=== PATIENT | female | born 1965 | race African-American/Black ===

== ENCOUNTER → 2020-05-15 | Outpatient (CLI) | payer OTHER ==
[~2020-05-15] MED LIST: ACET-868 PO; IBUP-1955 PO; TRAM50TA2 PO
== END | disposition home or self-care (01) ==
LOC: LAB 07:15
PROVIDERS: ATTEND Specialist
DX: Z01.812 Encounter for preprocedural laboratory examination (principal); Z20.828 Contact with and (suspected) exposure to other viral communicable diseases
CPT/HCPCS: 87426; C9803 ×2; U0003

== ENCOUNTER 2020-05-20 07:45 | Inpatient (IN) | payer OTHER ==
[~2020-05-20] VITALS: Ht 175.3 cm; Wt 65.8 kg
--- NOTE | 2020-05-20 08:00 | NUR ---
ms rn received a day surgery patient 54 female awake,alert,oriented x4,not in any form of distress, will have a left knee sx by doctor azalea.all needs attended.
[2020-05-20] MEDS ORDERED: ANCEF 1 GM/50 ML D5W IV ONE ×2 (09:00)
--- NOTE | 2020-05-20 09:20 | NUR ---
ms rn all needs attended and prepared for sx, went down fos sx.
[2020-05-20] MEDS ORDERED: TRANEXAMIC ACID 3,000 MG in SODIUM CHLORIDE IRRIG SOLUTION 70 ML IR ONE (09:30)
[2020-05-20] MEDS ORDERED: BACITRACIN 50000 UNITS/VIAL ONE (09:53)
[2020-05-20 10:00] VITALS: BP 152/89
[2020-05-20] MEDS ORDERED: MIDAZOLAM HCL 2 MG/2ML VIAL ONE (10:05)
[2020-05-20] MEDS ORDERED: HYDROMORPHONE INJ 2 MG/ML DISP.SYRIN ONE ×2 (10:05→11:46)
[2020-05-20] MEDS ORDERED: ONDANSETRON HCL/PF 4 MG/2 ML VIAL ONE (12:25)
[2020-05-20] MEDS ORDERED: BISACODYL SUPP (10 MG) 10 MG/SUPP.RECT SUPP.RECT RC PRN (12:30)
[2020-05-20] MEDS ORDERED: SENNOSIDES 8.6 MG TABLET PO PRN (12:30)
[2020-05-20] MEDS ORDERED: IV LR 1000 ML 1,000 ML IV PRN (12:30)
[2020-05-20] MEDS ORDERED: ONDANSETRON HCL/PF 4 MG/2 ML VIAL IVP PRN (12:30)
[2020-05-20] MEDS ORDERED: HYDROMORPHONE 1 MG/1 ML DISP.SYRIN IV PRN (12:30)
[2020-05-20] MEDS ORDERED: HYDROCODONE/APAP 5/325MG TABLET PO PRN ×2 (12:30)
[2020-05-20] MEDS ORDERED: ZOLPIDEM TARTRATE 5 MG TABLET PO PRN (12:30)
[2020-05-20] MEDS ORDERED: DOCUSATE SODIUM 250 MG CAPSULE PO PRN (12:30)
[2020-05-20] MEDS ORDERED: ACETAMINOPHEN 325 MG TABLET PO PRN (12:30)
--- NOTE | 2020-05-20 13:00 | NUR ---
ms rn patient came back from [place], s/p left knee arthroplasty.awake,alert,all needs attended.oriented x4,not in any pain at this time, sx site w/ dressing intact clean and dry.
[2020-05-20] MEDS ORDERED: TRAM50TA2 PO (13:45)
[2020-05-20] MEDS ORDERED: ACET-868 PO (13:45)
[2020-05-20] MEDS ORDERED: IBUP-1955 PO (13:45)
[2020-05-20] MEDS ORDERED: diphenhydrAMINE HCL 25 MG CAPSULE PO PRN (15:00)
[2020-05-20] MEDS ORDERED: MAGNESIUM HYDROXIDE 30 ML UDC PO PRN (15:00)
[2020-05-20] MEDS ORDERED: MENTHOL/CETYLPYRD (CEPACOL) 1 LOZ LOZENGE PO PRN (15:00)
[2020-05-20] MEDS: LORAZEPAM 1 MG TABLET PO SCH ×2 (15:00→23:16)
[2020-05-20] MEDS ORDERED: MAG HYDROX/AL HYDROX/SIMETH 30 ML UDC PO PRN (15:00)
[2020-05-20] MEDS ORDERED: CLONIDINE HCL 0.1 MG TABLET PO PRN (15:00)
[2020-05-20] MEDS ORDERED: AMLODIPINE BESYLATE 5 MG TABLET PO ONE (15:04)
[2020-05-20 16:00] VITALS: BP 133/91
[2020-05-20] MEDS: AMLODIPINE BESYLATE 5 MG TABLET PO SCH (18:22)
[2020-05-20] MEDS: DOCUSATE SODIUM 100 MG CAPSULE PO SCH (18:22)
[2020-05-20 20:00] VITALS: BP 130/90
[2020-05-20] MEDS: oxyCODONE IR immediate release 5 MG PO PRN (20:36)
[2020-05-20] MEDS: FAMOTIDINE (20 MG) 20 MG TABLET PO SCH (21:30)
[2020-05-20 22:01] VITALS: BP 130/90
--- NOTE | 2020-05-20 22:18 | NUR ---
MS/RN OPENING NOTE Patient awake in bed A/Ox4, ambulatory with assist. Breath sounds even, clear, unlabored. No acute distress or SOB. Skin warm, pink, dry appropriate for ethnicity. Dressing to left knee, dry and intact. IV site left hand 20g, patent and intact. Patient is continent, void via BRP. Bed in low position, wheels locked, side rails up x2, call light within reach.
--- NOTE | 2020-05-20 23:30 | NUR ---
MS/RN NOTE IV site fell out, intact. Patient refused new IV access at this time.
[2020-05-21] MEDS: oxyCODONE IR immediate release 5 MG PO PRN (01:33)
--- NOTE | 2020-05-21 01:39 | NUR ---
MS/RN NOTE Patient c/o pain in left knee, aching and throbbing. Administered PRN oxy IR as ordered. VSS. Will continue to monitor.
[2020-05-21] MEDS: LORAZEPAM 1 MG TABLET PO SCH ×3 (06:32→22:42)
--- NOTE | 2020-05-21 07:18 | NUR ---
MS/RN CLOSING NOTE Patient awake in bed A/Ox4, ambulatory with assist. Breath sounds even, clear, unlabored. No acute distress or SOB. Dressing to left knee, dry and intact. No IV site, patient refused. No BM. Patient is continent, void via BRP. Bed in low position, wheels locked, side rails up x2, call light within reach.
[2020-05-21 07:34] LABS: HEMOGLOBIN 9.9 g/dL (11.5-14.8)
--- NOTE | 2020-05-21 07:40 | NUR ---
ms rn received on bed, awake,alert,oriented x4,not in any form of distress, respirations even and unlabored,no sob noted,denies pain at this time,s/p left knee arthroplasty,will monitor patient's condition.
[2020-05-21 08:00] VITALS: BP 126/87
[2020-05-21] MEDS: ASPIRIN 325 MG TABLET PO SCH ×3 (08:32→17:00)
[2020-05-21] MEDS: DOCUSATE SODIUM 100 MG CAPSULE PO SCH ×2 (08:32→18:25)
[2020-05-21] MEDS: AMLODIPINE BESYLATE 5 MG TABLET PO SCH (08:33)
[2020-05-21] MEDS: FAMOTIDINE (20 MG) 20 MG TABLET PO SCH ×2 (08:33→21:34)
[2020-05-21] MEDS ORDERED: oxyCODONE IR immediate release 5 MG PO ONE ×2 (08:36→08:41)
[2020-05-21] MEDS ORDERED: oxyCODONE IR immediate release 5 MG PO PRN (09:00)
--- NOTE | 2020-05-21 09:40 | NUR ---
ms sutton breakfast served,due meds given,tolerated well.
--- NOTE | 2020-05-21 11:00 | NUR ---
ms rn get up w/ pt, walked w/ walker,tolerated well.
[2020-05-21] MEDS: HYDROMORPHONE 1 MG/1 ML DISP.SYRIN IM/IV/SC PRN ×3 (11:07→21:52)
--- NOTE | 2020-05-21 14:30 | NUR ---
ms rn patient on cpm machine,tolerated well.
[2020-05-21 16:00] VITALS: BP 138/86
--- NOTE | 2020-05-21 18:48 | NUR ---
ms rn on bed, no distress noted,all needs attended.
--- NOTE | 2020-05-21 19:31 | NUR ---
MS RN PT IN BED WATCHING TV A/O X 4 S/P L KNEE ARTHROPLASTY L KNEE DRESSING INTACT NO S/S OF BLEEDING NO S/S OF DISTRESS, STABLE. SAFETY MEASURES IN PLACE WILL CONT TO MONITOR
[2020-05-21 20:00] VITALS: BP 126/83
[2020-05-21 20:45] VITALS: BP 126/83
[2020-05-22] MEDS: HYDROMORPHONE 1 MG/1 ML DISP.SYRIN IM/IV/SC PRN ×5 (01:34→16:52)
--- NOTE | 2020-05-22 06:29 | NUR ---
MONITORED PAIN & PT ACCORDINGLY, VS STABLE, MAINTAINS WBAT S/P L TKA KNEE IMMOBILIZER AT ALL TIMES. ENCOURAGE PT TO USE INCENTIVE SPIROMETER WHILE AWAKE. ALL NEEDS ATTENDED AND ANTICIPATED, PT KEPT CLEAN, DRY AND COMFORTABLE. STABLE. SAFETY MEASURES AT ALL TIMES. WILL ENDORSE POC.
--- NOTE | 2020-05-22 07:30 | NUR ---
MS/RN OPENING NOTE Received patient in bed, A&O x 4. Denies any pain and discomfort at this time. Breathing even and non-labored on RA, no SOB noted. No cardiac distress noted. IV access noted on L hand #24 g, patent and intact, and flushing well. L knee dressing intact. Sensation from all peripheral extremities intact. Bed locked to its lowest position, side rails x 2 up, call light in reach. Will continue with current medical management.
[2020-05-22 08:00] VITALS: BP 125/80
[2020-05-22] MEDS: DOCUSATE SODIUM 100 MG CAPSULE PO SCH ×2 (08:22→16:52)
[2020-05-22] MEDS: ASPIRIN 325 MG TABLET PO SCH ×2 (08:22→16:52)
[2020-05-22] MEDS: FAMOTIDINE (20 MG) 20 MG TABLET PO SCH (08:22)
[2020-05-22] MEDS: LORAZEPAM 1 MG TABLET PO SCH ×3 (08:22→15:29)
[2020-05-22 08:23] VITALS: BP 115/78
[2020-05-22] MEDS: AMLODIPINE BESYLATE 5 MG TABLET PO SCH (08:23)
--- NOTE | 2020-05-22 15:15 | NUR ---
MS/RN NOTE Non-administered Ativan 0.5 mg PO, pill fell on the floor, wasted with Lisa DELEON. Will get a new pill.
--- NOTE | 2020-05-22 15:20 | NUR ---
MS/PULVERIZER NOTE Patient picked up by , Juan Francisco, @ 1720. VSS, afebrile, no SOB noted. All needs are met and attended to. Denies any pain and discomfort at this time. Breathing even and non-labored on RA. No respiratory or cardiac distress noted. IV access on LFA #22 removed with catheter intact. Sensation from all peripheral extremities intact. Left knee immobilizer in place, dressing clean and intact. Educated patient regarding discharge instructions, answered all their questions to their satisfaction. Patient verbalized understanding. Patient left facility safely with all belongings and hospital documents.
--- NOTE | 2020-05-22 16:00 | NUR ---
MS/RN NOTE Patient insists on having PT home health, notified SAMEER Gao. Order carried out, will be arranged by case management.
== END 2020-05-22 17:10 | disposition home health service (06) | DRG 470 ==
LOC: DS 07:45 → MED 07:46
PROVIDERS: ADMIT Nurse Practitioner Acute Care; ATTEND Nurse Practitioner Acute Care
PROC: 0SRD0J9 Replacement of Left Knee Joint with Synthetic Substitute, Cemented, Open Approach (ICD-10-PCS; principal; 2020-05-20)
DX: M17.12 Unilateral primary osteoarthritis, left knee (principal); E66.9 Obesity, unspecified; I10 Essential (primary) hypertension; Z68.21 Body mass index [BMI] 21.0-21.9, adult; F10.20 Alcohol dependence, uncomplicated
CPT/HCPCS: 36415; 85027-TC; 86850-TC; 87081-TC; 88305-TC; 88311-TC; 97110-TC; 97112-TC; 97116-TC; 97530-TC; A4217; C1713; C1776; G0378; J0690; J1100; J1170; J1885; J2250; J2405; J2704; J3490; J7060; L1830

== ENCOUNTER 2020-06-24 10:00 | Outpatient (CLI) | payer OTHER | END 2020-06-24 23:59 | disposition home or self-care (01) | LOC: LAB 10:00 | PROVIDERS: ATTEND Specialist | DX: Z01.812 Encounter for preprocedural laboratory examination (principal); Z20.828 Contact with and (suspected) exposure to other viral communicable diseases | CPT/HCPCS: 87426; C9803 ×2; U0003 ==

== ENCOUNTER 2020-07-01 05:07 | Inpatient (IN) | payer OTHER ==
[~2020-07-01] VITALS: Ht 175.3 cm; Wt 92.1 kg
--- NOTE | 2020-07-01 05:20 | NUR ---
MS/RN OPENING NOTES: PT ARRIVED TO THE UNIT AT 0520 IN STABLE CONDITION. A/OX4, VERBALLY RESPONSIVE AND ABLE TO MAKE NEEDS KNOWN. AMBULATORY WITH STEADY GAIT. NO SOB NOTED. NO S/S OF DISTRESS. ON ROOM AIR, BREATHING EVEN AND UNLABORED. NO C/O PAIN AT THIS TIME. BELONGINGS LIST CHECKED. NO MEDICAL HISTORIES. PT HAD HYSTERECTOMY AND LEFT KNEE TOTAL ARTHROPLASTY. SCAR NOTED. SKIN INTACT. PHOTO TAKEN AND DOCUMENTED IN CHART. PT ORIENTED TO UNIT AND STAFF. ALL CONSENTS SIGNED AND PLACED IN THE CHART. PT. NPO SINCE MIDNIGHT. IV ON THE LEFT AC #20G INTACT AND PATENT, SL. MRSA SWAB DONE. ALL NURSING NEEDS ATTENDED FOR NOW. WILL CONTINUE TO MONITOR.
--- NOTE | 2020-07-01 05:30 | NUR ---
MS/RN NOTES: PT IS VEGETARIAN, NO EGGS, NO MILK.
[2020-07-01 06:01] VITALS: BP 139/87
[2020-07-01] MEDS ORDERED: ANESTHESIA TRAY IN PYXIS 1 EA TRAY MC ONE (06:21)
[2020-07-01] MEDS ORDERED: BUPIVACAINE 0.5 % PF 150 MG/30 ML VIAL ONE (06:39)
[2020-07-01] MEDS ORDERED: SCOPOLAMINE PATCH 1 MG/72HR TD ONE (06:40)
[2020-07-01] MEDS ORDERED: SEVOFLURANE 250 ML BOTTLE IH ONE (06:40)
[2020-07-01] MEDS ORDERED: BUPIVACAINE MPF W/EPI 0.25% 30 ML VIAL ONE (06:41)
--- NOTE | 2020-07-01 06:42 | NUR ---
MS/RN NOTES: PT. PICKED UP BY JAZMINE FROM OR FOR PROCEDURE "RIGHT KNEE TOTAL ARTHROPLASTY" WITH DR. RICHEY. WILL ENDORSE TO DAY SHIFT FOR CHARANJIT.
[2020-07-01] MEDS ORDERED: FENTANYL PF 100MCG/2ML AMPUL ONE ×2 (06:55→09:11)
[2020-07-01] MEDS ORDERED: HYDROMORPHONE 1 MG/1 ML DISP.SYRIN ONE ×2 (09:01→09:07)
[2020-07-01] MEDS ORDERED: SENNOSIDES 8.6 MG TABLET PO PRN (10:00)
[2020-07-01] MEDS ORDERED: DOCUSATE SODIUM 250 MG CAPSULE PO PRN (10:00)
[2020-07-01] MEDS ORDERED: ONDANSETRON HCL/PF 4 MG/2 ML VIAL IVP PRN (10:00)
[2020-07-01] MEDS ORDERED: HYDROCODONE/APAP 5/325MG TABLET PO PRN (10:00)
[2020-07-01] MEDS ORDERED: ACETAMINOPHEN 325 MG TABLET PO PRN (10:00)
[2020-07-01] MEDS ORDERED: BISACODYL SUPP (10 MG) 10 MG/SUPP.RECT SUPP.RECT RC PRN ×2 (10:00→14:30)
[2020-07-01] MEDS: HYDROMORPHONE 1 MG/1 ML DISP.SYRIN IV PRN ×2 (10:53→20:04)
[2020-07-01] MEDS ORDERED: HYDROMORPHONE 1 MG/1 ML DISP.SYRIN IV ONE (14:03)
[2020-07-01] MEDS ORDERED: oxyCODONE IR immediate release 5 MG PO ONE (14:17)
[2020-07-01] MEDS ORDERED: MENTHOL/CETYLPYRD (CEPACOL) 1 LOZ LOZENGE PO PRN (14:30)
[2020-07-01] MEDS ORDERED: HYDROMORPHONE 1 MG/1 ML DISP.SYRIN IV PRN (14:30)
[2020-07-01] MEDS: LORAZEPAM 1 MG TABLET PO SCH ×2 (14:30→22:30)
[2020-07-01] MEDS ORDERED: CLONIDINE HCL 0.1 MG TABLET PO PRN (14:30)
[2020-07-01] MEDS ORDERED: diphenhydrAMINE HCL 25 MG CAPSULE PO PRN (14:30)
[2020-07-01] MEDS ORDERED: oxyCODONE IR immediate release 5 MG PO PRN (14:30)
[2020-07-01] MEDS ORDERED: MAG HYDROX/AL HYDROX/SIMETH 30 ML UDC PO PRN (14:30)
[2020-07-01] MEDS: oxyCODONE IR immediate release 5 MG PO PRN ×2 (14:53→20:32)
[2020-07-01] MEDS: ANCEF 1 GM/50 ML D5W IV SCH ×4 (15:33→22:42)
[2020-07-01] MEDS: IV LR 1000 ML 1,000 ML IV PRN (15:53)
[2020-07-01 16:00] VITALS: BP 147/88
[2020-07-01] MEDS ORDERED: AMLODIPINE BESYLATE 5 MG TABLET PO SCH (17:00)
[2020-07-01] MEDS: DOCUSATE SODIUM 100 MG CAPSULE PO SCH (17:02)
--- NOTE | 2020-07-01 18:07 | NUR ---
RN MS CLOSING NOTES PATIENT RESTING COMFORTABLY IN BED, A/OX4, VERBALLY RESPONSIVE AND ABLE TO MAKE NEEDS KNOWN. PATIENT ON ROOM AIR, BREATHING EVEN AND UNLABORED NO C/O SOB NOTED, NO S/S OF ACUTE RESPIRATORY DISTRESS. PT C/O PAIN LEVEL 6/10 ON PAIN SCALE TO LT KNEE S/P TOTAL LT KNEE ARTHROPLASTY. IV TO LT AC #20G PATENT AND INTACT; INFUSING LR @100 ML/HR. PT USING BEDSIDE COMMODE WITH ASSISTANCE. PT ON VEGAN DIET. PAIN MANAGEMENT UNDER CONTROL. BED IS AT LOWEST POSITION AND LOCKED WITH SIDE RAILS UPX2 AND CALL LIGHT WITH IN REACH. WILL ENDORSE TO ONCOMING SHIFT.
--- NOTE | 2020-07-01 19:30 | NUR ---
MS ADRIENNE OPEN NOTES PT IS SITTING IN BED WATCHIING TV. A/O X4. STABLE ON RA, NO SOB/ ACUTE RESPIRATORY DISTRESS NOTED. IV IN L AC #20G IS PATENT AND INTACT RUNNING LR @ 100MLS/HR. PT IS ABLE TO AMBULATE TO COMMODE. BED IS IN LOWEST LOCKED POSITION WITH SIDE RAILS UP X3, SEMI FOWLERS. CALL LIGHT IS WITHIN REACH. WILL CONTINUE TO MONITOR.
[2020-07-01 20:00] VITALS: BP 137/88
[2020-07-01] MEDS: FAMOTIDINE (20 MG) 20 MG TABLET PO SCH (20:04)
--- NOTE | 2020-07-01 22:00 | NUR ---
MS RN NOTES PT TRANSFERRED FROM ROOM 304-1 TO 307-2 DUE TO HER BEING CONCERNED OF THE LOOSE TILE ON CEILING. PER PT, SHE IS AFRAID THERE IS MOLD AND IS AFRAID OF BEING ALLERGIC/ INHALING ANYTHING TOXIC. WILL CONTINUE TO MONITOR PT.
[2020-07-01] MEDS: ZOLPIDEM TARTRATE 5 MG TABLET PO PRN (22:37)
[2020-07-02] VITALS: BP 151/92
[2020-07-02] MEDS: HYDROMORPHONE 1 MG/1 ML DISP.SYRIN IV PRN ×5 (00:24→18:06)
[2020-07-02] MEDS: IV LR 1000 ML 1,000 ML IV PRN (03:22)
[2020-07-02] MEDS: oxyCODONE IR immediate release 5 MG PO PRN ×3 (04:26→21:18)
[2020-07-02 06:07] LABS: BASOPHILS % (AUTO) 0.2 % (0.0-2.0); EOSINOPHILS % (AUTO) 0.2 % (0.0-6.0); HEMATOCRIT 34 % (33-45); HEMOGLOBIN 10.4 g/dL (11.5-14.8); LYMPHOCYTES # (AUTO) 1.4 /CMM (0.8-4.8); LYMPHOCYTES % (AUTO) 18.3 % (20.0-44.0); MEAN CORPUSCULAR HGB CONC 31 g/dl (31.0-36.0); MEAN CORPUSCULAR VOLUME 74 fL (82-100); MONOCYTES # (AUTO) 0.9 /CMM (0.1-1.30); MONOCYTES % (AUTO) 12.1 % (2.0-12.0); NEUTROPHILS # (AUTO) 5.4 /CMM (1.8-8.9); NEUTROPHILS % (AUTO) 69.2 % (43.0-81.0); PLATELET COUNT (AUTO) 267 /CMM (150-450); WHITE BLOOD COUNT (AUTO) 7.8 K/uL (4.3-11.0)
[2020-07-02] MEDS: LORAZEPAM 1 MG TABLET PO SCH ×3 (06:30→22:32)
--- NOTE | 2020-07-02 06:30 | NUR ---
MS RN NOTES PT REFUSED ALL SCHEDULED ATIVANS THROUGHOUT SHIFT. STATED SHE DOES NOT FEEL ANXIOUS/ AGITATED AND THEREFORE DOES NOT NEED TO TAKE THE MEDICATION.
[2020-07-02 06:36] LABS: EOSINOPHILS % (MANUAL) 1 % (0-4); LYMPHOCYTES % (MANUAL) 21 % (16-48); MONOCYTES % (MANUAL) 11 % (0-11.0); NEUTROPHILS % (MANUAL) 67 (42-76)
--- NOTE | 2020-07-02 06:55 | NUR ---
MS RN CLOSE NOTES PATIENT IS LAYING IN BED. A/O X4. STABLE ON RA, NO SOB/ ACUTE RESPIRATORY DISTRESS NOTED. IV IN L AC #20G IS PATENT AND INTACT RUNNING LR @ 100MLS/HR. PAIN MANAGEMENT PROVIDED THROUGHOUT THE NIGHT. PT IS ABLE TO AMBULATE WITH FRONT WHEEL WALKER. BED IS IN LOWEST LOCKED POSITION WITH SIDE RAILS UP X3, SEMI FOWLERS. CALL LIGHT IS WITHIN REACH. WILL ENDORSE TO AM NURSE.
--- NOTE | 2020-07-02 07:49 | NUR ---
RN MS NOTES RECEIVED PATIENT RESTING IN BED, AWAKE A/OX4, ON ROOM AIR, BREATHING EVEN AND UNLABORED NO C/O SOB NOTED, NO S/S OF ACUTE RESPIRATORY DISTRESS. PT C/O PAIN LEVEL 8/10 ON PAIN SCALE TO RT KNEE S/P TOTAL LT KNEE ARTHROPLASTY. IV TO LT AC #20G PATENT AND INTACT; INFUSING LR @100 ML/HR. PT ABLE TO AMBULATE WITH ASSISTANCE. BED IS AT LOWEST POSITION AND LOCKED WITH SIDE RAILS UPX2 AND CALL LIGHT WITH IN REACH. WILL CONTINUE TO MONITOR PATIENT THROUGH OUT SHIFT.
[2020-07-02 08:00] VITALS: BP 126/78
[2020-07-02] MEDS ORDERED: AMLODIPINE BESYLATE 5 MG TABLET PO SCH (09:00)
[2020-07-02] MEDS: FAMOTIDINE (20 MG) 20 MG TABLET PO SCH ×2 (09:04→21:05)
[2020-07-02] MEDS: ASPIRIN 325 MG TABLET PO SCH (09:04)
[2020-07-02] MEDS: DOCUSATE SODIUM 100 MG CAPSULE PO SCH ×2 (09:04→17:15)
[2020-07-02] MEDS: AMLODIPINE BESYLATE 5 MG TABLET PO SCH ×2 (09:04→17:15)
[2020-07-02 16:00] VITALS: BP 133/84
--- NOTE | 2020-07-02 19:01 | NUR ---
RN MS CLOSING NOTES PT IS SITTING IN BED WATCHIING TV. A/O X4. STABLE ON RA, NO SOB/ ACUTE RESPIRATORY DISTRESS NOTED. IV IN L AC #20G IS PATENT AND INTACT; SL. PT IS ABLE TO AMBULATE TO COMMODE. BED IS IN LOWEST LOCKED POSITION WITH SIDE RAILS UP X3, SEMI FOWLERS. CALL LIGHT IS WITHIN REACH. WILL CONTINUE TO MONITOR.
--- NOTE | 2020-07-02 19:35 | NUR ---
MS RN NOTES RECEIVED ON BED A/O X4,BREATHING REGULAR,NOT IN ANY FORM OF DISTRESS,S/P RIGHT TOTAL KNEES ARTHROPLASTY YESTERDAY 07/[address] RICHEY,DRESSING INTACT AND DRY.IVF LR AT 100ML/HR RATE INFUSING WELL ON LEFT AC SALINE LOCK VIA IV PUMP.AMBULATES WITH WALKER.PALN DISCHARGE TO ARU TOMORROW BUT SHE WANTS TO SPEAK FIRST WITH DR MOONEY AND CASE MANAGEMENT.CALL LIGHT IN REACH,NEEDS ANTICIPATED.
[2020-07-02 20:00] VITALS: BP 146/93
[2020-07-02 20:30] VITALS: BP 146/93
--- NOTE | 2020-07-02 21:18 | NUR ---
MS RN NOTES PAIN MANAGEMENT C/O RIGHT KNEE PAIN 6-7/10 ON PAIN SCALE.MEDICATED WITH OXY IR 15MG PO ORDERED FOR MODERATE PAIN.
--- NOTE | 2020-07-02 22:30 | NUR ---
MS RN NOTES PATIENT SAYS,FEELING BETTER REGARDING PAIN.ASSISTED TO THE BEDSIDE COMMODE.
[2020-07-03] MEDS: ZOLPIDEM TARTRATE 5 MG TABLET PO PRN (00:37)
--- NOTE | 2020-07-03 00:37 | NUR ---
MS RN NOTES C/O INSOMNIA,MEDICATED WITH AMBIEN 5MG PO BY ADRIENNE BURTON.
[2020-07-03] MEDS ORDERED: ZOLPIDEM TARTRATE 5 MG TABLET PO ONE (03:00)
--- NOTE | 2020-07-03 03:00 | NUR ---
MS RN NOTES AWAKE,SHE CANT SLEEP,ASKING AGAIN FOR AMBIEN.HOSPITALIST ANGELINE MADE AWARE,OKAY TO REPEAT THE DOSE AMBIEN 5MG PO X1,NOTED AND CARRIED OUT.
[2020-07-03] MEDS: LORAZEPAM 1 MG TABLET PO SCH ×2 (06:20→14:32)
[2020-07-03] MEDS: oxyCODONE IR immediate release 5 MG PO PRN ×2 (06:28→13:49)
--- NOTE | 2020-07-03 06:28 | NUR ---
MS RN NOTES AWAKE,DUE ATIVAN 0.5MG PO GIVEN ORDERED.
--- NOTE | 2020-07-03 06:36 | NUR ---
MS RN NOTES ON BED A/O X4,DRESSING CHANGE DONE ON RIGHT KNEE ASEPTICALLY.SALINE LOCK REMAINS PATENT ON LEFT AC,ABLE TRANSFER FROM BED TO BEDSIDE COMMODE.POSSIBLE DISCHARGE TODAY TO ACUTE REHAB,BUT IF SHE FEELS BETTER,PATIENT PREFERS TO GO HOME.WILL ENDORSE TO DAY NURSE FOR CHARANJIT.
--- NOTE | 2020-07-03 07:02 | NUR ---
RN OPENING NOTES RECEIVED PT AWAKE IN BED AT THIS TIME. PT AOX4. PT ABLE TO MAKE NEEDS KNOWN. NO SOB NOTED, NO S/S OF ANY ACUTE DISTRESS NOTED. NO C/O PAIN AT THIS TIME. RESPIRATIONS ARE EVEN AND UNLABORED. PT IS STABLE ON RA. IV ACCESS NOTED IN LAC G# 20, INTACT, PATENT AND FLUSHING WELL. PT MADE AWARE TO CALL FOR ASSISTANCE IN USING BEDSIDE COMMODE. SAFETY PRECAUTION IN PLACE AND MAINTAINED AT ALL TIMES. BED IN LOWEST LOCKED POSITION, HOB ELEVATED, SIDE RAILS UP X 2, CALL LIGHT AND TABLE WITHIN REACH. WILL CONTINUE TO MONITOR.
[2020-07-03 07:58] VITALS: BP 141/91
[2020-07-03] MEDS: FAMOTIDINE (20 MG) 20 MG TABLET PO SCH ×2 (08:53→21:00)
[2020-07-03] MEDS: DOCUSATE SODIUM 100 MG CAPSULE PO SCH ×2 (08:53→16:44)
[2020-07-03] MEDS: ASPIRIN 325 MG TABLET PO SCH (08:53)
[2020-07-03] MEDS: AMLODIPINE BESYLATE 5 MG TABLET PO SCH ×2 (08:54→16:45)
--- NOTE | 2020-07-03 13:50 | NUR ---
PT C/O OF GUARDING ACHING RIGHT KNEE PAIN OF 7/10. VS WNL. PER PT REQUEST OXYCODONE 15MG PO Q3HR PRN FOR PAIN OF 4-7 WAS ADMINISTERED PER ORDER. WILL CONTINUE TO MONITOR
--- NOTE | 2020-07-03 13:55 | NUR ---
LAC G#20 IV ACCESS LEAKING, WHEN FLUSHED. IV REMOVED. PRESSURE APPLIED, SECURED WITH GAUZE AND TAPE. NO SIGN OF BLEEDING OR INFILTRATION NOTED. WILL CONTINUE TO MONITOR
--- NOTE | 2020-07-03 14:05 | NUR ---
INSERTED IV IN RAC G#22. GOOD BLOOD RETURN NOTED, INTACT, PATENT AND FLUSHING WELL. PT TOLERATED WELL. WILL CONTINUE TO MONITOR
[2020-07-03 16:00] VITALS: BP 112/75
--- NOTE | 2020-07-03 17:06 | NUR ---
PT C/O OF GUARDING ACHING RIGHT KNEE PAIN OF 8/10 . PT NOTED WITH FACIAL GRIMACE AND GRASPING RIGHT KNEE. VS WNL. PER PT REQUEST DILAUDID 1MG IV Q3HR PRN Q3HR PRN FOR SEVERE PAIN ADMINISTERED PER ORDER AT THIS TIME. WILL CONTINUE TO MONITOR
--- NOTE | 2020-07-03 18:46 | NUR ---
MS RN CLOSING NOTES PT AWAKE IN BED AT THIS TIME. PT REMAINED STABLE THROUGHOUT SHIFT. ALL CARE, NEEDS, MEDICATION AND TREATMENT ADMINISTERED ANTICIPATED PER ORDER. PAIN MANAGEMENT ADMINISTERED PER ORDER. SAFETY PRECAUTION IN PLACE AND MAINTAINED AT ALL TIMES. BED IN LOWEST LOCKED POSITION, HOB ELEVATED, SIDE RAILS UP X 2, CALL LIGHT AND TABLE WITHIN REACH. WILL ENDORSE TO FORENSIC SCIENCE TECHNICIAN NURSE FOR CHARANJIT
--- NOTE | 2020-07-03 19:20 | NUR ---
admissions manager rn: received [facility] corn picker. pt a/o x4, on ra respirations even and unlabored. pt received dilaudid at 1706. iv access patent and flushing well, on hl. restarted iv access on rfa using g 20 per pt request, she stated she doesnt feel anything last time rn gave her medication, she said once she receive dilaudid she will feel sleepy. education provided to pt. previous iv access removed, tip intact and pressured dressing applied. safety precautions for fall initiated, call light in reach, will continue monitoring pt.
--- NOTE | 2020-07-03 19:36 | NUR ---
RN NOTES: CONTACTED [facility] TO F/U REGARDING BATCH ANALYST, PER SHIP ERECTOR THEY NEED TO DISPATCH ANOTHER UNIT, WILL BE HERE IN 45MINS.
--- NOTE | 2020-07-03 19:53 | NUR ---
RN NOTES: UNABLE TO REACH [facility] [phone], NO ONES ANSWERING CONTACTED [facility] SPOKED WITH SENIOR APPLICATIONS ARCHITECT BUT WAS THEN TRANSFERRED TO SUB ACUTE. CALLED AGAIN, SPOKED WITH ADRIENNE NAIK, THEN CONNECTED TO ARU. TO MADE AWARE THAT AMBULANCE SIGNALMAN IS DELAYED BY 45MINS. SPOKE WITH URBAN DELEON.
[2020-07-03] MEDS: HYDROMORPHONE 1 MG/1 ML DISP.SYRIN IV PRN (20:23)
--- NOTE | 2020-07-03 20:23 | NUR ---
prn dilaudid: pt found to be restless crying and very upset, 10/10 pain stated she has excruciating pain 10/10 on both knee. pt refused checking vs stated she's been upset that's why she doesnt want vs to be taken. prn dilaudid 1mg ivp administered to pt at this time. agree to check vs after giving medication
[2020-07-03 20:39] VITALS: BP 134/86
--- NOTE | 2020-07-03 21:00 | NUR ---
RN NOTES/BEHAVIOR: PT VERY UPSET, CRYING, EMOTIONAL, STATED ASIDE FROM HER PAIN ON BILATERAL KNEE, SHE'S ALSO WORRIED BECAUSE SHE IS NOT GOING HOME TODAY, BUT INSTEAD WILL BE SPENDING 3WEEKS IN REHAB. EMOTIONAL SUPPORT PROVIDED TO PT, ENCOURAGE VERBALIZATION OF FEELINGS, EDUCATE PT THAT PER MD/ORTHO AND PT RECOMMENDATION IT WOULD BENEFIT HER IF SHE WILL GO TO REHAB FOR REHABILITATION AND RECOVERY ALSO FOR HER OWN SAFETY SINCE SHE HAD KNEE SX ON BOTH KNEE ONE MONTH APART. PT EXPRESSES FRUSTRATION, ALSO STATED SHES NOT HAPPY ABOUT DAY SHIFT NOT GIVING HER PAIN MEDICATION TIMELY. PT COMPLAINING ABOUT A LOT OF THINGS LIKE BED SIDE COMMODE NOT CLOSER TO HER BED, AND SHE SAID SHE DOESNT FEEL SAFE GOING TO COMMODE BY HERSELF. ADDRESSED PT'S ISSUE ONE BY ONE. RN ACKNOWLEDGE PT'S FEELINGS AND CONCERNS. INFORMED PT THAT SINCE SHE RECEIVE IV DILAUDID, IT WILL BE AT LEAST AN HOUR APART BEFORE ADMINISTERING ANOTHER PAIN MEDICATION FOR HER SAFETY, ALSO NEEDING TO CHECK VS SINCE PAIN MEDICINE AFFECTS BLOOD PRESSURE. SECOND, RN PLACED THE BED SIDE COMMODE CLOSER TO THE BEDSIDE, AND INSTRUCTED PT TO CALL RN FOR HELP USING COMMODE ( SHE IS FALL RISK). AFTER THIS, PT EXPRESSES HER GRATITUDE AND STATED SHE'S JUST FEELING NOT HERSELF BECAUSE OF THE FACT SHE WILL NOT BE WITH HER FAMILY FOR 3WEEKS. INFORMED PT THAT THE 3WEEKS PLAN COULD BE THE PT/MD TIME FRAME OF THE MOMENT, BUT THOSE CAN ALSO ALTER/CHANGE DEPENDING ON HOW PT APPROACH THE THERAPY AND HOW SHE PROGRESSES. PT VERBALIZED UNDERSTANDING.
--- NOTE | 2020-07-03 21:14 | NUR ---
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 inventory of belonging completed by frozen food selector. all belongings handed to paramedics. vs taken and recorded. informed niranjan rn from [facility] to give oxy ir once pt get there last time pt received oxy ir was 7hrs ago, also informed pt received dilaudid 1mg at 2030, dressing changed on right knee performed by day rn. education provided to pt regarding dilaudid and oxy ir, action and side effect. all dc paperworks handed over to [facility]. report provided. pt left the [facility] via ambulance.
--- NOTE | 2020-07-03 21:19 | NUR ---
non admin of pepcid: pt discharge to [facility].
== END 2020-07-03 21:20 | DRG 470 ==
LOC: DS 05:07 → MED 05:08
PROC: 0SRC0J9 Replacement of Right Knee Joint with Synthetic Substitute, Cemented, Open Approach (ICD-10-PCS; principal; 2020-07-01)
DX: M17.11 Unilateral primary osteoarthritis, right knee (principal); I10 Essential (primary) hypertension; D64.9 Anemia, unspecified; E66.9 Obesity, unspecified; Z68.30 Body mass index [BMI] 30.0-30.9, adult; Z96.652 Presence of left artificial knee joint
CPT/HCPCS: 36415; 85025-TC; 86850-TC; 87081-TC; 88305-TC; 88311-TC; 97110-TC; 97112-TC; 97116-TC; 97530-TC; 97760-TC; A4217; A6253; C1713; C1776; G0378; J0690; J1100; J1170; J1885; J2405; J2704; J3010; J3490; J7050; J7060; J7120; L1830